=== PATIENT | male | born 1950 | race Caucasian/White ===

== ENCOUNTER → 2016-07-15 | Outpatient (CLI) | payer OTHER ==
[~2016-07-15] MED LIST: ALBU18HF IH; AMLO2.5T PO; ASCO500T2 PO; ASPI325T4 PO; ATOR40TA PO; ESOM40CA25 PO; FENO160T13 PO; FISH1CAP PO; INSU100I13 SQ; LISI-334 PO; LUTE20CA2 PO; MAGN64TA3 PO; METF1000 PO; NIAC750T PO; RANO10002 PO; VITA400C36 PO
== END | disposition home or self-care (01) ==
LOC: LAB 09:41
PROVIDERS: ATTEND Nurse Practitioner
DX: E83.42 Hypomagnesemia (principal)
CPT/HCPCS: 36415; 83735

== ENCOUNTER → 2016-08-12 | Outpatient (CLI) | payer OTHER ==
[2016-07-16 18:42] VITALS: BP 147/89
[~2016-08-12] MED LIST changes: -ASPI325T4 PO; +ASPI325T8 PO; -LUTE20CA2 PO; +LUTE20CA4 PO
[2016-08-12 15:35] LABS: CALCIUM 8.8 mg/dL (8.5-10.1); GFR 75.2; MAGNESIUM 1.6 mg/dL (1.8-2.4); POTASSIUM 4.5 mmol/L (3.5-5.1)
== END | disposition home or self-care (01) ==
LOC: LAB 14:46
PROVIDERS: ATTEND Nurse Practitioner
DX: I10 Essential (primary) hypertension (principal)
CPT/HCPCS: 36415; 80048; 83735

== ENCOUNTER → 2018-03-16 | Outpatient (CLI) | payer MEDICARE, OTHER ==
[2016-07-16 18:42] VITALS: BP 147/89
[~2018-03-16] MED LIST changes: -ALBU18HF IH; +ALBU2.5V8 IH; -AMLO2.5T PO; +AMLO2.5T3 PO; -MAGN64TA3 PO; +MAGNESIUM DR64 MG PO
[2018-03-16 09:32] LABS: ALBUMIN 3.8 g/dL (3.4-5.0); ALBUMIN/GLOBULIN RATIO 1.2 (1.0-1.7); CALCIUM 8.9 mg/dL (8.5-10.1); CREATININE 1.1 mg/dL (0.7-1.3); GFR 67.2; POTASSIUM 4.7 mmol/L (3.5-5.1); TOTAL BILIRUBIN 0.5 mg/dL (0.2-1.0)
[2018-03-16 18:27] LABS: THYROID STIM HORMONE (TSH) 1.404 uIU/mL (0.358-3.740)
[2018-03-16 20:12] LABS: HEMOGLOBIN A1C 6.4 % (4.8-5.6)
== END | disposition home or self-care (01) ==
LOC: LAB 08:35
PROVIDERS: ATTEND Nurse Practitioner
DX: Z12.5 Encounter for screening for malignant neoplasm of prostate (principal); E78.5 Hyperlipidemia, unspecified; R00.2 Palpitations; I10 Essential (primary) hypertension; E11.9 Type 2 diabetes mellitus without complications; Z79.84 Long term (current) use of oral hypoglycemic drugs
CPT/HCPCS: 36415; 80053; 80061; 83036; 84443; G0103

== ENCOUNTER → 2018-09-11 | Outpatient (CLI) | payer MEDICARE, OTHER ==
[2016-07-16 18:42] VITALS: BP 147/89
[~2018-09-11] MED LIST changes: -AMLO2.5T3 PO; +AMLO2.5T5 PO
[2018-09-11 09:38] LABS: ALBUMIN/GLOBULIN RATIO 1.3 (1.0-1.7); CALCIUM 9.3 mg/dL (8.5-10.1); CREATININE 1.2 mg/dL (0.7-1.3); GFR 60.6; MAGNESIUM 1.3 mg/dL (1.8-2.4); POTASSIUM 4.7 mmol/L (3.5-5.1); TOTAL BILIRUBIN 0.6 mg/dL (0.2-1.0); TOTAL PROTEIN 7.2 g/dL (6.4-8.2)
== END | disposition home or self-care (01) ==
LOC: LAB 08:50
PROVIDERS: ATTEND Nurse Practitioner
DX: E78.5 Hyperlipidemia, unspecified (principal); E83.42 Hypomagnesemia
CPT/HCPCS: 36415; 80053; 80061; 83735

== ENCOUNTER → 2018-12-25 | Outpatient (CLI) | payer MEDICARE, OTHER ==
[2016-07-16 18:42] VITALS: BP 147/89
--- NOTE | 2018-12-25 08:41 | RAD ---
TESTICULAR/SCROTUM: 12/25/2018 8:00 AM INDICATION: 68 years old Male. Left testicular pain. COMPARISON: None. FINDINGS: Right: Testicle: Normal in echotexture without focal lesion. Size: 5.0 x 3.6 x 2.7 cm. Flow: Normal color Doppler flow pattern. Epididymis: Normal in size and echotexture suspicious focal lesion. There is a 4 mm epididymal cyst. Hydrocele: None. Varicocele: None. Left: Testicle: Normal in echotexture without focal lesion. Size: 4.0 x 3.1 x 2.7 cm. Flow: Normal color Doppler flow pattern. Epididymis: There is a 3.8 x 2.6 x 2.3 cm anechoic structure within the head of the epididymis compatible with an epididymal cyst. Hydrocele: None. Varicocele: Small. IMPRESSION: 1. Perfusion is noted to the testicles bilaterally at the time of imaging. 2. Left epididymal cyst measuring 3.8 x 2.6 x 2.3 cm. 3. Small left varicocele. Electronically signed by: Inocencia Sheridan MD (12/25/2018 8:38 AM) [facility]
== END | disposition home or self-care (01) ==
LOC: US 07:34
PROVIDERS: ATTEND Family Medicine
DX: N50.812 Left testicular pain (principal); I86.1 Scrotal varices; N50.3 Cyst of epididymis
CPT/HCPCS: 76870